=== PATIENT | female | born 1990 | race African-American/Black ===

== ENCOUNTER → 2020-10-13 00:10 | Outpatient (CLI) | payer BC, SELFPAY ==
[2020-10-13 20:47] LABS: SARS-CoV-2 RNA PCR Negative
== END ==
PROVIDERS: Visit Provider Obstetrics & Gynecology
DX: Z01.812 Encounter for preprocedural laboratory examination (principal); Z20.822 Contact with and (suspected) exposure to COVID-19
CPT/HCPCS: C9803; U0003; U0005

== ENCOUNTER 2020-10-16 00:40 | Day surgery (SDC) | payer BC, SELFPAY ==
[2020-10-07 09:26] VITALS: BMI 27.3
--- NOTE | 2020-10-15 14:48 | WPDANESEPPF ---
Anes - Initial Pre Proc Eval Procedure: Operation Date: 10/16/20 12:00 Proposed Procedures p Diagnostic Laparoscopy With Right Ovarian Cystectomy - Abraham Da Silva MD Date/Time: 10/15/20 14:48 Surgeon: Abraham Da Silva MD Pre Op Diagnosis: Right Ovarian Cyst Patient Data Age: 29 Gender: F Height: 1.57 m Weight: 68 kg Allergies Allergy/AdvReac Type Severity Reaction Status Date / Time No Known Allergies Allergy Verified 10/16/20 10:51 Home Medications Medication Instructions Recorded Confirmed Type xonqsqpz-[id number]-Be-FA 1 tablet PO DAILY 10/07/20 10/16/20 History [] Patient hx anesthesia problems: none Family hx anesthesia problems: none PMFSH Past Medical History Medical History Ovarian cyst Overweight (BMI 25.0-29.9) Social History Social History Smoking status: Never smoker Alcohol intake: current Drinks per week: 3 Substance use: never Substance use type: does not use Living arrangements: with family Spiritual care concerns: No Anes - Eval Final PreProcedure Day of Procedure 10/15/20 14:48 Patient weight: overweight Heart: regular rate and rhythm Lungs: clear to auscultation and normal air movement Airway: Mallampati scale class II Neurological: alert and oriented Last oral intake: >/= 8 hours ASA classification: II Emergent: no Anesthetic plan: proceed Anesthesia type and monitoring: general ETT Informed Consent: The patient's anesthetic plan and its attendant risks and benefits were discussed with the patient/family/POA. Questions were solicited and answers provided to the satisfaction of the patient/family/POA.
[2020-10-16] VITALS (9 sets, daily range): BP systolic 96–148; BP diastolic 51–89; PULSE 58–75; RESP 10–20; TEMP 36.6; O2SAT 99–100
--- NOTE | 2020-10-16 10:04 | P.HP_ITS ---
History of Present Illness History of Present Illness Consent: Risks, benefits, and alternatives have been discussed and questions answered. Patient agrees to proceed with procedure. Chief complaint: Right Ovarian Cyst Narrative: Huong Mckeon is a 29 year old female recent history of miscarriage in 06/2020 at approximately 6 weeks gestation patient presented to outside hospital with complaints of bleeding and pain findings consistent with miscarriage. Also noted on ultrasound and 8 cm cyst Review of Systems Review of Systems: All systems reviewed & are unremarkable except as noted in HPI and below PMFSH Past Medical History Medical History Ovarian cyst Overweight (BMI 25.0-29.9) Social History Social History Smoking status: Never smoker Alcohol intake: current Drinks per week: 3 Substance use: never Substance use type: does not use Living arrangements: with family Spiritual care concerns: No Meds Home Medications and Allergies Home Medications Medication Instructions Recorded Confirmed Type [id number]-FA 1 tablet PO DAILY 10/07/20 10/16/20 History [] Allergies Allergy/AdvReac Type Severity Reaction Status Date / Time No Known Allergies Allergy Verified 10/16/20 10:51 Exam Const: Orientation/consciousness: patient oriented x3 Cardio: Rate: regular rate Rhythm: regular rhythm Heart sounds: S1 no rmal heart sound present and S2 normal heart sound present GI: Auscultation: normal bowel sounds : External Female Exam: normal external appearance Speculum Exam - Cervix: normal appearance of the cervix Bimanual exam- vagina & uterus: non- tender Bimanual Exam- Adnexa, other: Adnexal mass present Results Results Abdominal x-ray: report reviewed (8.6 x 5.5.x5.1 cm right ovarian cyst with dermoid features. ) Assessment and Plan Assessment and plan (1) Ovarian cyst: Qualifiers: Laterality: right Qualified Code(s): N83.201 - Unspecified ovarian cyst, right side Code(s): N83.209 - Unspecified ovarian cyst, unspecified side Status: Acute Assessment and Plan: scheduled for a diagnostic laparosccopy with right ovarian cystectomy.
[2020-10-16] MEDS: ACETAMINOPHEN 500 MG TABLET 1000 MG PO (10:45)
[2020-10-16] MEDS: LACTATED RINGERS 1,000 ML 30 ML IV CONT ×2 (10:45→13:49)
[2020-10-16] MEDS: KETOROLAC 15 MG/ML VIAL (*BKC) IV PUSH (10:50)
--- NOTE | 2020-10-16 11:54 | WPDHPUPDATE1 ---
History and Physical Update Update Date/Time: 10/16/20 11:54 History and Physical has been reviewed, including an updated exam of the patient. There are NO changes in the patient's condition. Risks, benefits, and alternatives have been discussed and questions answered. Patient agrees to proceed with procedure.
--- NOTE | 2020-10-16 15:07 | PM.PROC ---
Procedure Note - Detailed Date of procedure: 10/16/20 Pre-op diagnosis: Right Ovarian Cyst Post-op diagnosis: same Procedure performed: diagnostic Laparoscopy with right ovarian cystectomy Description of procedure: the patient was taken to the operating room with IV running she was prepped and draped in a normal sterile fashion and placed in the lithotomy position. A bivalve speculum was placed into the vagina anterior lip of the cervix was grasped with a single-tooth tenaculum uterus was sounded to 8cm and a uterine manipulator was placed into the cervix. Attention was then turned to the abdomen. A 5mm incision was made in the umbilical fold. A Veress needle was introduced into the abdomen saline drop test was applied gas was introduced with opening pressure of -2 mmHg and the abdomen was insufflated with CO2 gas 2L. A trocar was introduced into the umbilical fold under visualization with the laparoscoped. The uterine cavity was examined and a right 5mm and left 10 mm trocar was introduced into the cavity direct visualization. a large right ovarian cyst was noted on the right ovary a needle point cautery was then used to make a linear incision into the ovarian mass the ovarian tissue was then dissected carefully from the ovarian cyst like gaining small vessels during dissection. cauterized scissors was also used to transect the ovarian tissue the cyst was removed and placed in the lower cul-de-sac a 2nd cyst was noted and removed with cautery scissors. An endobag was placed into the abdomen and the cyst were placed in the bag and removed from the abdomen this was noted to contain hair and skin cells and adipose tissue. The abdomen was irrigated copiously with 2L of normal saline the ovary was examined for hemostasis the ovary was wrapped in intercede. the laparoscopic was removed and the trocars were removed releasing air from the abdomen. A UR 6 needle on a 0 Vicryl suture was used to close the fascia on the left trocar site. The skin was closed with 0 Vicryl suture subcutaneous stitch. patient tolerated the procedure well and was taken to recovery room stable condition sponge lap and needle counts were correct x2. Anesthesia: GLMA and local Surgeon: Abraham Da Silva MD Estimated blood loss (mL): 10 Drains: No Packing: No Pathology: yes Complications: None Condition: stable Disposition: PACU Findings: large right ovarian cyst.
[2020-10-16] MEDS: oxyCODONE HCL (*CRX) 5 MG TAB IR PO (15:30)
== END 2020-10-16 16:05 | disposition home or self-care (01) ==
PROVIDERS: Visit Provider Obstetrics & Gynecology
PROC: (CPT 49320; principal; 2020-10-16 12:00)
DX: D27.0 Benign neoplasm of right ovary (principal)
CPT/HCPCS: 58662; 88305; A9270; J1100; J1885; J2250; J2405; J2704; J2710; J3010; J7030; J7120